=== PATIENT | female | born 1990 | race American Indian/Alaskan Native ===

== ENCOUNTER 2018-08-30 12:35 | Outpatient (CLI) | payer MEDICAID ==
[2018-08-30 12:51] VITALS: BP 138/82
--- NOTE | 2018-08-30 16:28 | Ultrasound Report ---
FINAL REPORT EXAM: US OB BPP WO NON-STRESS HISTORY: leaking fluid TECHNIQUE: Transabdominal OB ultrasound. Biophysical profile PRIORS: None currently available. FINDINGS: LIMITED OB ULTRASOUND: Single intrauterine . Presentation: Cephalic. heart rate: 149-164 BPM. Amniotic fluid index: 11.2 cm. Within normal limits. BIOPHYSICAL PROFILE: Breathin Gross Body Movements: 2 Tone: 2 Qualitative AFV: 2 IMPRESSION: Biophysical profile score 8/8. Single live intrauterine .
--- NOTE | 2018-08-30 16:28 | Ultrasound Report ---
FINAL REPORT EXAM: US OB LIMITED HISTORY: leaking fluid TECHNIQUE: Transabdominal OB ultrasound. Biophysical profile PRIORS: None currently available. FINDINGS: LIMITED OB ULTRASOUND: Single intrauterine . Presentation: Cephalic. heart rate: 149-164 BPM. Amniotic fluid index: 11.2 cm. Within normal limits. BIOPHYSICAL PROFILE: Breathin Gross Body Movements: 2 Tone: 2 Qualitative AFV: 2 IMPRESSION: Biophysical profile score 8/8. Single live intrauterine .
== END 2018-08-30 14:50 | disposition home or self-care (01) ==
LOC: TRG 12:35
PROVIDERS: ATTEND Obstetrics & Gynecology
DX: O47.1 False labor at or after 37 completed weeks of gestation (principal); Z3A.39 39 weeks gestation of pregnancy
CPT/HCPCS: 59025; 76815; 76819

== ENCOUNTER 2018-09-03 17:59 | Inpatient (IN) | payer MEDICAID ==
[2018-09-03] MEDS ORDERED: TYLENOL PO ONE (18:59)
[2018-09-03] MEDS ORDERED: AMPICILLIN/NS 2 GM/100 ML 2 GM/100 ML BAG IV ONE ×2 (18:59→20:54)
[2018-09-03] MEDS ORDERED: SUBLIMAZE IV PRN (18:59)
[2018-09-03] MEDS ORDERED: PITOCin/NS 20 UNIT/1000ML DRIP 20 UNITS/1,000 ML BAG IV SCH ×2 (19:00→21:00)
[2018-09-03] MEDS ORDERED: LACTATED RINGERS 1,000 ML IV SCH ×2 (19:00→21:00)
[2018-09-03 20:12] LABS: Hemoglobin 10.2 gm/dl (10.1-14.3); Mean Corpuscular HGB Conc 34 % (30-34); Mean Corpuscular Volume 90 fl (79-97); Platelet Count 238 K/mm3 (140-440); Red Blood Count 3.32 M/mm3 (3.65-5.03); Red Cell Distribution Width 15.5 % (13.2-15.2)
--- NOTE | 2018-09-03 20:47 | History and Physical Report ---
History of Present Illness Date of examination: 09/03/18 Date of admission: 09/03/18 20:07 Chief complaint: Labor History of present illness: Pt is a 28yo BF EDC 09/07/18; EGA 39 3/7 weeks presents to L&D complaining of leaking fluid since 0400. She received care at [facility] since 27 weeks [place] [facility] [place] course has been unremarkable. records are available and GBS is Negative. Past History Past Medical History: no pertinent history Past Surgical History: no surgical history CLASSER History: herpes Family/Genetic History: none Social history: no significant social history, single - Obstetrical History Expected Date of Delivery: 09/07/18 Actual Gestation: 39 Week(s) 3 Day(s) : 1 Medications and Allergies Allergies Allergy/AdvReac Type Severity Reaction Status Date / Time No Known Allergies Allergy Unverified 08/30/18 13:11 Home Medications Medication Instructions Recorded Confirmed Last Taken Type Ferrous Sulfate [Iron] 1 tab PO BID 09/03/18 09/03/18 2 Weeks Ago History ~08/20/18 Pnv No.121/Iron/Folic Acid 1 tab PO QDAY 09/03/18 09/03/18 2 Weeks Ago History [ Multivitamin Tablet] ~08/20/18 Valtrex 1 tab PO QDAY 09/03/18 09/03/18 09/02/18 19:00 History Active Meds: Active Medications Fentanyl (Sublimaze) 100 mcg IV Q2H PRN PRN Reason: Labor Pain Ampicillin Sodium (Ampicillin/Ns 1 Gm/50 Ml) 1 gm in 50 mls @ 100 mls/hr IV Q4H CHARI Lactated Ringer's (Lactated Ringers) 1,000 mls @ 125 mls/hr IV DIRECT CHARI Last Admin: 09/03/18 19:20 Dose: 999 mls/hr Documented by: Oxytocin/Sodium Chloride (Pitocin/Ns 20 Unit/1000ml Drip) 20 units in 1,000 mls @ 0 mls/hr IV DIRECT CHARI Review of Systems All systems: negative - Vital Signs Vital signs: Vital Signs Pulse BP 83 138/78 09/03/18 18:27 09/03/18 18:27 Temp Pulse Resp BP Pulse Ox 99.9 F H 85 18 124/70 09/03/18 18:29 09/03/18 19:47 09/03/18 19:19 09/03/18 19:47 - Physical Exam Breasts: Positive: deferred Cardiovascular: Regular rate Lungs: Positive: Clear to auscultation Abdomen: Positive: normal appearance Genitourinary (Female): Positive: normal external genitalia Vagina: Positive: normal moisture Uterus: Positive: enlarged Extremities: Positive: normal - Obstetrical FHR: category 1 Uterine Contraction Monitor Mode: External Cervical Dilatation: 4 (per nurse) Cervical Effacement Percentage: 80 (per nurse) station: -2 Uterine Contraction Pattern: Irregular Uterine Tone Measurement Phase: Contraction Uterine Contraction Intensity: Moderate Results Result Diagrams: 09/03/18 19:15 Abnormal lab results 09/03/18 Range/Units 19:15 WBC 16.6 H (4.5-11.0) K/mm3 RBC 3.32 L (3.65-5.03) M/mm3 Hct 30.0 L (30.3-42.9) % RDW 15.5 H (13.2-15.2) % All other labs normal. Assessment and Plan - Patient Problems (1) 39 weeks gestation of Onset Date: 09/03/18 Current Visit: Yes Status: Acute Plan to address problem: A: IUP @ 39 3/7 weeks PPROM P: Admit to L&D for expectant vaginal delivery IV Ampicillin
[2018-09-03] MEDS ORDERED: XYLOCAINE 2% INFILTRATI ONE (20:54)
[2018-09-03] MEDS ORDERED: ZOFRAN IV PRN (20:54)
[2018-09-03] MEDS ORDERED: BRETHINE IVP PRN (20:54)
[2018-09-03] MEDS ORDERED: BRETHINE SUB-Q PRN (20:54)
[2018-09-03] MEDS ORDERED: MINERAL OIL PO PRN (20:54)
[2018-09-03] MEDS ORDERED: STADOL IV PRN (20:54)
[2018-09-03] MEDS ORDERED: PHENERGAN PO PRN (20:54)
[2018-09-03] MEDS ORDERED: PITOCin/NS 30 UNIT/500ML 30 UNITS/500 ML BAG IV SCH ×2 (21:00)
[2018-09-03] MEDS ORDERED: NARCAN 2 MG/2 ML IV PRN (21:36)
--- NOTE | 2018-09-03 21:36 | Anesthesia Consultation ---
Anesthesia Consult and Med Hx Date of service: 09/03/18 - Airway Anesthetic Teeth Evaluation: Good ROM Head & Neck: Adequate Mental/Hyoid Distance: Adequate Mallampati Class: Class II Intubation Access Assessment: Probably Good - Pre-Operative Health Status ASA Pre-Surgery Classification: ASA2 Proposed Anesthetic Plan: Epidural, Spinal - Pulmonary Hx Asthma: No COPD: No Hx Pneumonia: No - Cardiovascular System Hx Hypertension: No - Central Nervous System Hx Seizures: No Hx Psychiatric Problems: No - Endocrine Hx Renal Disease: No Hx End Stage Renal Disease: No Hx Hypothyroidism: No Hx Hyperthyroidism: No - Hematic Hx Anemia: Yes Hx Sickle Cell Disease: No - Other Systems Hx Alcohol Use: No
[2018-09-03] MEDS ORDERED: fentaNYL-BUPIV 2 MCG/ML-0.125% 200 MCG/100 ML BAG EPIDURAL SCH (22:00)
[2018-09-03] MEDS ORDERED: AMPICILLIN/NS 1 GM/50 ML 1 GM/50 ML BAG IV SCH (23:00)
[2018-09-04] MEDS ORDERED: AMPICILLIN/NS 1 GM/50 ML 1 GM/50 ML BAG IV SCH
[2018-09-04] MEDS ORDERED: TYLENOL PO ONE (03:31)
[2018-09-04] MEDS ORDERED: BENADRYL IV ONE (03:32)
[2018-09-04] MEDS ORDERED: REGLAN IV ONE (04:50)
[2018-09-04] MEDS ORDERED: BICITRA PO ONE (04:50)
[2018-09-04] MEDS ORDERED: PEPCID IV ONE (04:50)
[2018-09-04] MEDS ORDERED: PITOCin/NS 20 UNIT/1000ML DRIP 20 UNITS/1,000 ML BAG IV SCH ×2 (05:00→07:00)
[2018-09-04] MEDS ORDERED: LACTATED RINGERS 1,000 ML IV SCH (05:00)
[2018-09-04] MEDS ORDERED: ANCEF/STERILE WATER 2 GM/20 ML 2 GM/20 ML SYRINGE IV NR (05:00)
[2018-09-04] MEDS ORDERED: ASTRAMORPH PF 10MG/10ML ONE (05:41)
[2018-09-04] MEDS ORDERED: XYLOCAINE MPF 2% ONE ×4 (05:41)
[2018-09-04] MEDS ORDERED: NACL 0.9% 1000 ML 1,000 ML ONE (06:01)
--- NOTE | 2018-09-04 06:01 | Operative Report ---
Operative Report Operative Report: Date of procedure: 09/04/2018 Pre-operative diagnosis: 1. Intrauterine at 39-4/7 weeks 2. Prolon ged ruptured membranes 3. Non-reassuring surveillance Post-operative diagnosis: Same Procedure name(s): Primary low transverse section Surgeon: Yusuf Cardenas MD [employer] Consultant: None Anesthesia: Epidural anesthesia by Dr. Cunningham EBL: 500 mL Findings: A 3657 g male infant Apgars 2 at 1 minute 8 at 5 minutes. Clear amniotic fluid. Normal uterus. Normal tubes and ovaries bilaterally. Procedure: After the patient was prepped and draped in usual sterile fashion, and after satisfactory level of epidural anesthesia was obtained, the skin knife was used to make a transverse skin incision. The incision was excised down to layer of the fascia, which was nicked in the midline and extended laterally using the Bovie cautery. The rectus muscles were dissected off the rectus fasc ia both superiorly and inferiorly. The rectus bellies in the midline, and the peritoneum was entered under direct visualization. The peritoneal incision was extended superiorly and inferiorly. A bladder flap was created and the bladder blade was then placed. The uterus was scored in a curvilinear linear fashion, entered in the midline revealing clear amniotic fluid. The infant's head was delivered onto the surgical field, and the oropharynx and nasopharynx were bulb suctioned. The rest of the infant's body was delivered, cord was doubly clamped and cut and the infant was handed to the waiting respiratory team. Cord blood was then obtained. The placenta was manually removed from the uterus, and the uterus removed from its normal anatomical position. After gentle uterine lavage, the incision was inspected and found to be without extensions. It was then closed in 2 layers using 0 Vicryl suture in a running interlocking fashion, the second layer imbricating the first. After good hemostasis was achieved, copious amounts or irrigation was performed, and the gutters were suctioned free of blood and blood clots. Tisseel sealant was sprayed across the uterine incision. The uterus was then returned to its normal anatomical position, and after excellent hemostasis assured, the peritoneum was re-approximated using 3-0 Vicryl suture in a running interlocking fashion, and then the rectus muscles were re-approximated using 3-0 Vicryl suture in a [id number] configuration. The fascia was then re-approximated using 0 Vicryl suture in running interlocking fashion. The subcutaneous layer was made hemostatic using Bovie cautery, the Tisseel sealant was sprayed across the fascial incision and the skin edges re-approximated using 4-0 Vicryl suture in a sub-cuticular fashion. Patient tolerated the procedure well was transported to recovery in stable condition.
[2018-09-04] MEDS ORDERED: NARCAN 0.4 MG/1 ML IV PRN (06:05)
[2018-09-04] MEDS ORDERED: LANSINOH TP PRN (06:05)
[2018-09-04] MEDS ORDERED: TORADOL IV PRN (06:05)
[2018-09-04] MEDS ORDERED: TUCKS PAD TP PRN (06:05)
[2018-09-04] MEDS ORDERED: TYLENOL PO PRN (06:05)
[2018-09-04] MEDS ORDERED: MYLICON PO PRN (06:05)
[2018-09-04] MEDS ORDERED: PHENERGAN PR PRN (06:05)
[2018-09-04] MEDS ORDERED: NORCO 5/325 PO PRN (06:05)
[2018-09-04] MEDS ORDERED: MILK OF MAGNESIA PO PRN (06:05)
[2018-09-04] MEDS ORDERED: SENOKOT PO PRN (06:05)
[2018-09-04] MEDS ORDERED: SODIUM CHLORIDE FLUSH SYRINGE 10 ML IV PRN (07:00)
[2018-09-04] MEDS ORDERED: D5LR 1,000 ML IV SCH (07:00)
--- NOTE | 2018-09-04 08:38 | Post Anesthesia Evaluation ---
- Post Anesthesia Evaluation Patient Participated: Yes Airway Patent: Yes Stable Respiratory Function: Yes Nausea/Vomiting: No Temp > 96.8F: Yes Pain Manageable: Yes Adequeate Hydration: Yes Anesthesia Complications: No Block Receding Appropriately: Yes Patient on Ventilator: No
--- NOTE | 2018-09-04 08:38 | Anesthesia Day of Surgery ---
Anesthesia Day of Surgery - Day of Surgery Patient Examined: Yes Patient H&P Reviewed: Yes Patient is NPO: Yes
[2018-09-04] MEDS ORDERED: BENADRYL IV PRN (13:08)
[2018-09-04] MEDS: PRENATAL VITAMIN PO SCH (13:23)
[2018-09-04] MEDS: FEOSOL PO SCH (13:23)
[2018-09-04] MEDS: ANCEF/NS 1 GM/50 ML 1 GM/50 ML BAG IV SCH ×2 (14:02→21:29)
[2018-09-04 18:32] LABS: Hematocrit 28.1 % (30.3-42.9); Hemoglobin 9.3 gm/dl (10.1-14.3)
[2018-09-04] MEDS: IBUPROFEN PO PRN (22:34)
[2018-09-05] MEDS ORDERED: BOOSTRIX IM ONE (06:00)
[2018-09-05] MEDS ORDERED: M-M-R II VACCINE SUB-Q ONE (06:07)
[2018-09-05] MEDS: IBUPROFEN PO PRN ×2 (07:52→23:40)
--- NOTE | 2018-09-05 10:15 | Progress Note ---
Assessment and Plan - Patient Problems (1) 39 weeks gestation of Onset Date: 09/03/18 Current Visit: Yes Status: Resolved (2) Status post Onset Date: 09/05/18 Current Visit: Yes Status: Resolved Plan to address problem: A: S/P C Section - POD #1 Doing well Asymptomatic anemia - stable P: Continue RPOC Anticipate discharge in 24-48hrs Subjective - Subjective Date of service: 09/05/18 Principal diagnosis: s/p C Section - POD #1 Interval history: Pt is feeling well without complaints. Bleeding improved. Patient reports: appetite normal, voiding normally, pain well controlled, flatus, ambulating normally, no dizzy ambulation, no nauseated [place]: doing well, nursing well, bottle feeding Objective - Vital Signs Latest vital signs: Vital Signs Temp Pulse Resp BP BP Pulse Ox 09/05/18 07:25 98.0 F 85 18 116/73 98 09/05/18 01:54 98.6 F 87 18 114/62 97 09/04/18 20:41 99.4 F 85 18 117/70 99 09/04/18 16:06 98.6 F 87 18 128/80 09/04/18 11:45 99.3 F 82 18 134/60 Intake and Output 09/04/18 09/05/18 09/05/18 22:59 06:59 14:59 Intake Total 720 Output Total 350 400 Balance 370 -400 Intake: Oral 360 Intake, Free Water 360 Output: Urine 350 400 Indwelling Catheter 350 400 Other: Total, Intake Amount 240 Total, Output Amount 350 400 Voiding Method Toilet - Exam Breasts: Present: deferred Cardiovascular: Present: Regular rate Lungs: Present: Clear to auscultation Abdomen: Present: normal appearance, soft Uterus: Present: normal, firm, fundal height below umbilicus Extremities: Present: normal Incision: Present: normal, dry, intact, dressed - Labs Labs: Abnormal lab results 09/04/18 Range/Units 17:42 Hgb 9.3 L (10.1-14.3) gm/dl Hct 28.1 L (30.3-42.9) % Laboratory Tests 09/03/18 09/03/18 09/03/18 19:15 19:15 19:15 WBC 16.6 H RBC 3.32 L Hgb 10.2 Hct 30.0 L MCV 90 MCH 31 MCHC 34 RDW 15.5 H Plt Count 238 RPR Nonreactive Blood Type A POSITIVE Antibody Screen Negative 09/04/18 17:42 WBC RBC Hgb 9.3 L Hct 28.1 L MCV MCH MCHC RDW Plt Count RPR Blood Type Antibody Screen
[2018-09-05] MEDS: FEOSOL PO SCH (17:49)
[2018-09-05] MEDS: PRENATAL VITAMIN PO SCH (17:49)
[2018-09-05] MEDS: PERCOCET 5/325 PO PRN (23:40)
[2018-09-06] MEDS: IBUPROFEN PO PRN (06:03)
[2018-09-06] MEDS: PERCOCET 5/325 PO PRN (06:03)
[2018-09-06 08:35] VITALS: BP 121/69
[2018-09-06] MEDS: FEOSOL PO SCH (09:29)
[2018-09-06] MEDS: PRENATAL VITAMIN PO SCH (09:29)
--- NOTE | 2018-09-06 10:31 | Progress Note ---
Assessment and Plan - Patient Problems (1) 39 weeks gestation of Onset Date: 09/03/18 Current Visit: Yes Status: Resolved (2) Status post Onset Date: 09/05/18 Current Visit: Yes Status: Resolved Plan to address problem: A: S/P C Section - POD #2 Doing well Asymptomatic anemia - stable P: Continue RPOC May go home today. Subjective - Subjective Date of service: 09/06/18 Principal diagnosis: s/p C Section - POD #2 Interval history: Pt is feeling well without complaints. Bleeding improved. She is tolerating a reg diet without nausea or vomiting, ambulating and voiding without difficulty. Patient reports: appetite normal, voiding normally, pain well controlled, flatus, ambulating normally, no dizzy ambulation, no nauseated : doing well, nursing well, bottle feeding Objective - Vital Signs Latest vital signs: Vital Signs Temp Pulse Resp BP BP Pulse Ox 09/06/18 08:05 97.6 F 86 18 121/69 09/06/18 01:09 98.5 F 81 18 125/68 96 09/05/18 16:08 99.2 F 94 H 18 126/75 99 Intake and Output 09/05/18 09/06/18 09/06/18 22:59 06:59 14:59 Intake Total 360 240 Balance 360 240 Intake: Oral 240 240 Intake, Free Water 120 Other: Total, Intake Amount 240 240 Voiding Method Toilet - Exam Cardiovascular: Present: Regular rate Lungs: Present: Clear to auscultation Abdomen: Present: normal appearance, soft Uterus: Present: normal, firm, fundal height below umbilicus Extremities: Present: normal Incision: Present: normal, dry, intact
--- NOTE | 2018-09-06 13:05 | Discharge Summary ---
Providers - Providers Date of Admission: 09/03/18 20:07 Date of discharge: 09/06/18 Attending physician: NATE CALLES Primary care physician: NATE CALLES Hospitalization Reason for admission: active labor, IUP at term Delivery: Procedure: section, primary low transverse Incision: normal, dry, intact Other procedures: none complications: none Discharge diagnosis: IUP at term delivered Elaine baby: male Hospital course: Pt is a 28yo BF EDC 09/07/18; EGA 39 3/7 weeks who presented to L&D complaining of leaking fluid since 0400 09/03/18. She received care at [facility] since 27 weeks after transfer from [facility] – [place], [place]. course has been unremarkable. She was started on pitocin augmentation of labor, but developed a non-reassuring tracing, and therefore was delivered by an uncomplicated C Section. By POD #2 she was tolerating a reg diet without nausea or vomiting, ambulating and voiding without difficulty, and therefore discharged to home on POD #2 in stable condition. Condition at discharge: Good Disposition: DC-01 TO HOME OR SELFCARE - Discharge Diagnoses (1) 39 weeks gestation of Status: Resolved (2) Status post Status: Resolved Plan - Discharge Medications Prescriptions: Ferrous Sulfate [Feosol 325 MG tab] 325 mg PO BID #60 tablet HYDROcodone/APAP 5-325 [Gregory 5/325] 1 each PO Q6HR PRN #30 tablet PRN Reason: Pain Ibuprofen [Motrin] 800 mg PO Q8HR PRN #30 tablet PRN Reason: Moder Pain Unrelieved By Gregory No.137/Iron/Folic Acd [ Vitamin Tablet] 1 each PO DAILY #30 tablet - Provider Discharge Summary Activity: routine, no sex for 6 weeks, no heavy lifting 4 weeks, no strenuous exercise Diet: routine Instructions: routine Additional instructions: [] Smoking cessation referral if applicable(refer to patient education folder for contact #) [] Refer to [facility] Booklet Call your doctor immediately for: * Fever > 100.5 * Heavy vaginal bleeding ( >1 pad per hour) * Severe persistent headache * Shortness of breath * Reddened, hot, painful area to leg or breast * Drainage or odor from incision. * Keep incision clean and dry at all times and follow doctor's instructions regarding bathing/showering - Follow up plan Follow up: NATE CALLES MD [Primary Care Provider] - 14 Days
== END 2018-09-06 18:16 | disposition home or self-care (01) | DRG 765 ==
LOC: TRG 17:59 → LD 20:07 → OB 09-04 09:11
PROVIDERS: ADMIT Obstetrics & Gynecology; ATTEND Obstetrics & Gynecology
PROC: 10D00Z1 Extraction of Products of Conception, Low, Open Approach (ICD-10-PCS; principal; 2018-09-04)
PROC: 3E0234Z Introduction of Serum, Toxoid and Vaccine into Muscle, Percutaneous Approach (ICD-10-PCS; 2018-09-05)
DX: O76 Abnormality in fetal heart rate and rhythm complicating labor and delivery (principal); R71.0 Precipitous drop in hematocrit; Z3A.39 39 weeks gestation of pregnancy; Z37.0 Single live birth; O62.4 Hypertonic, incoordinate, and prolonged uterine contractions; Z23 Encounter for immunization
CPT/HCPCS: 36415; 85014; 85018; 85027; 86592; 86850; 86900; 86901; 88307; G0378; C9250; J0290; J0690; J1200; J1885; J2274; J2590; J2765; J7030; J7120; J7121